=== PATIENT | female | born 1965 | race African-American/Black ===

== ENCOUNTER 2020-09-01 09:46 | Inpatient (IN) | payer MEDICAID ==
[~2020-09-01] VITALS: Ht 167.6 cm; Wt 72.7 kg
[2020-09-01] MEDS: BLOOD SUGAR DIAGNOSTIC STRIP TEST SCH (00:05)
[2020-09-01 11:24] LABS: BASOPHILS % 0.4 % (0.0-2.0); HEMOGLOBIN. 8.7 g/dL (12.0-16.0); LYMPHOCYTES % 8.7 % (20.0-50.0); MEAN CORPUSCULAR HEMOGLOBIN 24.6 pg (28.0-32.0); MEAN PLATELET VOLUME 8.1 fl (7.4-10.4); MONOCYTES % 7.8 % (2.0-8.0); NEUTROPHILS % 83.1 % (40.0-76.0); PLATELET 397 x1000/uL (130-400); RED BLOOD CELL COUNT 3.56 mill/uL (4.2-5.4); RED CELL DISTRIBUTION WIDTH 16.5 % (11.6-14.6)
[2020-09-01 11:34] LABS: INR 1.1; PROTHROMBIN TIME 11.6 sec (9.6-11.0)
[2020-09-01 11:35] LABS: CHLORIDE 99 mEq/L (98-107)
[2020-09-01 11:44] LABS: BETA HYDROXYBUTYRATE 0.7 mMol/L (0.0-0.3)
[2020-09-01] MEDS ORDERED: ASPIRIN 81MG TABLET PO ONE (12:15)
[2020-09-01] MEDS ORDERED: FUROSEMIDE 40MG/4ML VIAL IV ONE (12:15)
[2020-09-01] MEDS ORDERED: INSULIN REGULAR (HUMULIN R) UD 100 UNITS/ML SYR SUBCUT ONE (14:30)
[2020-09-01] MEDS ORDERED: ACETAMINOPHEN 650MG SUPP PR PRN ×2 (19:30)
[2020-09-01] MEDS ORDERED: NA PHOS,M-B/NA PHOS,DI-BA ENEMA 118ML PR PRN (19:30)
[2020-09-01] MEDS ORDERED: ACETAMINOPHEN 650MG/20.3ML UDC GT PRN ×2 (19:30)
[2020-09-01] MEDS ORDERED: ONDANSETRON HCL 4MG/2ML INJ IV PRN (19:30)
[2020-09-01] MEDS ORDERED: DIPHENHYDRAMINE 50MG/ML VIAL IV PRN (19:30)
[2020-09-01] MEDS ORDERED: HYDROCODONE/ACETAMINOPHEN 5/325MG TABLET PO PRN (19:30)
[2020-09-01] MEDS ORDERED: DEXTROSE 50% WATER 50ML SYRINGE IV PRN (19:30)
[2020-09-01] MEDS ORDERED: MAGNESIUM/ALUMINUM HYDROXIDE/SIMETHICONE 30ML UDC PO PRN (19:30)
[2020-09-01] MEDS ORDERED: ACETAMINOPHEN 325MG TABLET PO PRN (19:30)
[2020-09-02] MEDS: FUROSEMIDE 40MG/4ML VIAL IV SCH (08:05)
[2020-09-02] MEDS: ENOXAPARIN 40MG/0.4ML SYR SUBCUT SCH (08:07)
[2020-09-02 08:12] LABS: BASOPHILS % 0.5 % (0.0-2.0); EOSINOPHILS % 0.2 % (0.0-5.0); HEMATOCRIT. 25.6 % (36.0-48.0); HEMOGLOBIN. 8.3 g/dL (12.0-16.0); LYMPHOCYTES % 13.9 % (20.0-50.0); MEAN CORPUSCULAR HEMOGLOBIN 24.3 pg (28.0-32.0); MEAN CORPUSCULAR VOLUME 75.1 fL (81.0-99.0); MEAN PLATELET VOLUME 7.9 fl (7.4-10.4); MONOCYTES % 10.5 % (2.0-8.0); NEUTROPHILS % 74.9 % (40.0-76.0); PLATELET 397 x1000/uL (130-400); RED CELL DISTRIBUTION WIDTH 16.5 % (11.6-14.6)
[2020-09-02 08:19] LABS: CHLORIDE 103 mEq/L (98-107)
[2020-09-02 08:27] LABS: LDL CHOLESTEROL 87 mg/dL (5-100)
[2020-09-02 08:28] LABS: CREATINE KINASE 97 IU/L (26-192); HDL CHOLESTEROL 27 mg/dL (40-59)
[2020-09-02 08:31] LABS: CREATINE KINASE MB FRACTION < 1.0 ng/mL (0.5-3.6)
[2020-09-02 10:59] LABS: T4 FREE 1.75 ng/dL (0.76-1.46)
[2020-09-03 04:00] VITALS: BP 160/89
[2020-09-03] MEDS ORDERED: METF-815 MT (05:13)
[2020-09-03 05:14] VITALS: BP 162/104
[2020-09-03] MEDS: BLOOD SUGAR DIAGNOSTIC STRIP TEST SCH ×4 (06:27→21:00)
[2020-09-03] MEDS: CLONIDINE 0.1MG TABLET PO PRN (06:29)
[2020-09-03 08:00] VITALS: BP 127/78
[2020-09-03 08:34] LABS: CREATINE KINASE 68 IU/L (26-192)
[2020-09-03 08:36] LABS: CREATINE KINASE MB FRACTION < 1.0 ng/mL (0.5-3.6)
[2020-09-03] MEDS: INSULIN LISPRO 100 UNITS/ML SUBCUT SCH ×4 (09:32→22:38)
[2020-09-03] MEDS: FUROSEMIDE 40MG/4ML VIAL IV SCH (09:41)
[2020-09-03] MEDS: ENOXAPARIN 40MG/0.4ML SYR SUBCUT SCH (09:41)
[2020-09-03 12:00] VITALS: BP 130/72
[2020-09-03 16:00] VITALS: BP 148/85
[2020-09-03] MEDS: AZITHROMYCIN 500 MG in DEXT 5% WATER 250 ML IV SCH (17:00)
[2020-09-03 20:00] VITALS: BP 145/88
[2020-09-04] VITALS: BP 132/78
[2020-09-04 04:00] VITALS: BP 139/75
[2020-09-04] MEDS: BLOOD SUGAR DIAGNOSTIC STRIP TEST SCH ×4 (06:40→21:00)
[2020-09-04 08:00] VITALS: BP 139/67
[2020-09-04] MEDS: ENOXAPARIN 40MG/0.4ML SYR SUBCUT SCH (08:55)
[2020-09-04] MEDS: FUROSEMIDE 40MG/4ML VIAL IV SCH (08:55)
[2020-09-04] MEDS: AZITHROMYCIN 500 MG in DEXT 5% WATER 250 ML IV SCH (09:31)
[2020-09-04] MEDS: INSULIN LISPRO 100 UNITS/ML SUBCUT SCH ×4 (09:32→21:00)
[2020-09-04 12:00] VITALS: BP 141/84
[2020-09-04 16:00] VITALS: BP 142/74
[2020-09-05] MEDS: BLOOD SUGAR DIAGNOSTIC STRIP TEST SCH ×4 (06:28→22:19)
[2020-09-05 08:00] VITALS: BP 157/96
[2020-09-05] MEDS: FUROSEMIDE 40MG/4ML VIAL IV SCH (09:02)
[2020-09-05] MEDS: ENOXAPARIN 40MG/0.4ML SYR SUBCUT SCH (09:03)
[2020-09-05] MEDS: AZITHROMYCIN 500 MG in DEXT 5% WATER 250 ML IV SCH (09:03)
[2020-09-05] MEDS: INSULIN LISPRO 100 UNITS/ML SUBCUT SCH ×4 (09:04→22:19)
[2020-09-05 12:00] VITALS: BP 167/99
[2020-09-05] MEDS: CLONIDINE 0.1MG TABLET PO PRN (13:45)
[2020-09-05 16:00] VITALS: BP 131/70
[2020-09-05 20:00] VITALS: BP 157/87
[2020-09-06] VITALS: BP 126/60
[2020-09-06 04:00] VITALS: BP 131/74
[2020-09-06] MEDS: BLOOD SUGAR DIAGNOSTIC STRIP TEST SCH ×3 (06:15→16:52)
[2020-09-06 08:00] VITALS: BP 141/76
[2020-09-06] MEDS: FUROSEMIDE 40MG/4ML VIAL IV SCH (08:26)
[2020-09-06] MEDS: ENOXAPARIN 40MG/0.4ML SYR SUBCUT SCH (08:26)
[2020-09-06] MEDS: INSULIN LISPRO 100 UNITS/ML SUBCUT SCH ×3 (08:27→17:10)
[2020-09-06] MEDS: AZITHROMYCIN 500 MG in DEXT 5% WATER 250 ML IV SCH (08:35)
[2020-09-06 09:44] LABS: EOSINOPHILS % 1.3 % (0.0-5.0); HEMATOCRIT. 27.6 % (36.0-48.0); HEMOGLOBIN. 8.8 g/dL (12.0-16.0); LYMPHOCYTES % 18.3 % (20.0-50.0); MEAN CORPUSCULAR HEMOGLOBIN 23.9 pg (28.0-32.0); MEAN PLATELET VOLUME 8.2 fl (7.4-10.4); MONOCYTES % 8.9 % (2.0-8.0); NEUTROPHILS % 70.5 % (40.0-76.0); PLATELET 698 x1000/uL (130-400); RED BLOOD CELL COUNT 3.68 mill/uL (4.2-5.4); RED CELL DISTRIBUTION WIDTH 17.2 % (11.6-14.6)
[2020-09-06 09:59] LABS: CHLORIDE 97 mEq/L (98-107)
[2020-09-06 12:00] VITALS: BP 123/72
[2020-09-06] MEDS ORDERED: AZIT500T3 MT (12:59)
[2020-09-06] MEDS ORDERED: FURO-151 MT (12:59)
[2020-09-06 15:32] VITALS: BP 141/76
[2020-09-06 16:00] VITALS: BP 157/91
[2020-09-07] MEDS ORDERED: AZITHROMYCIN 500 MG TABLET PO SCH (09:00)
== END 2020-09-06 18:15 | disposition home or self-care (01) | DRG 137 ==
LOC: ER 09:46 → MICUSO 14:20 → EDBEDREQ 14:35 → 7EST 09-03 01:47
PROVIDERS: ADMIT Family Medicine; ATTEND Family Medicine
DX: U07.1 COVID-19 (principal); I50.31 Acute diastolic (congestive) heart failure; I11.0 Hypertensive heart disease with heart failure; E11.65 Type 2 diabetes mellitus with hyperglycemia; D64.9 Anemia, unspecified; D72.810 Lymphocytopenia; E87.1 Hypo-osmolality and hyponatremia; E46 Unspecified protein-calorie malnutrition; J96.01 Acute respiratory failure with hypoxia; J15.6 Pneumonia due to other Gram-negative bacteria
CPT/HCPCS: 36415; 71045; 80048; 80053; 80061; 82010; 82550; 82553; 82962; 83036; 83880; 84439; 84443; 84484; 85025; 85379; 87426; 93005; 96374; 99285; J0456; J1650; J1815; J1940; J7060